=== PATIENT | female | born 1940 | race Caucasian/White ===

== ENCOUNTER 2024-12-17 13:57 | Outpatient (AMB) | payer MEDICARE, SELFPAY ==
--- OUTSIDE RECORDS SUMMARY | 2024-12-17 14:45 | XMS_ITS ---
Author Name [facility] Organization Unknown Care Team Organization Name Specialty Phone Email Start Date End Da te [facility] 03/09/2022 4
--- OUTSIDE RECORDS SUMMARY | 2024-12-17 14:45 | XMS_ITS | Patient Health Record ---
[facility] Address [address] [place] [address] Care Team Providers Care Composition Instructor Name Role Phone Nate Montejo MD Primary Care Provider Marshall Marquez Unavailable [phone] Allergies Allergen (clinical drug ingredient) Drug/Non Drug Allergy documented on EMR Reaction Allergy Type Onset Date Status sulfa rash Drug Allergy Active Reason For Referral No Information Medications Medication SIG (Take, Route, Fr equency, Duration) Notes Start Date End Date Status Naproxen DR 500 MG 1 tablet Orally Twice a day Active Gabapentin 100 MG Orally Ac tive Losartan Potassium-HCTZ Active Social History Tobacco use other than smoking: Question Answer Notes Are you an other tobacco user? No Problems No Known Problems Plan Of Treatment Pending Test Test Name Order Date 18482- Debride <25 sq cm 12/30/2014 Insurance Providers Payer Name Payer Address Payer Phone Subscriber Number Group Number Insured Name Patient Relationship to Insured Coverage Start Date Coverage End Date [employer] Preferred [address] [place] [address] [phone] [id number] Jennifer Handley Self - patient is the insured Medical (General) History Medical History History ICD Code Arthritis Broken bones Cataracts Headaches Migraines Hypertension Neuropathy chronic sinusitis Measles Mumps Chicken pox Surgical History Surgery Date(Month/Year) hysterectomy hand/wrist foot surgery
--- OUTSIDE RECORDS SUMMARY | 2024-12-17 14:45 | XMS_ITS | Clinical Summary ---
Author Organization [facility] Address [address] [place] [address] Care Team Providers Care Manager Code Name Role Phone Niraj Arambula Primary Care Provider Cleo vailable Allergies Active Allergy Reactions Criticality Noted Date Comments Nitrofurantoin 09/07/2018 rash Sulfa Antibiotics 09/07/2018 rash Medications Medication Sig Dispensed Refills Start Date End Date Status alendronate (FOSAMAX) 35 MG tablet Take 35 mg by mouth. 0 Active amLODIPine (NORVASC) tablet 5 mg TAKE ONE TABLET BY MOUTH EVERY DAY 2 09/07/2018 Active gabapentin (NEURONTIN) 600 MG tablet Take 600 mg by mouth every 8 (eight) hours. 3 09/30/2018 Active lisinopril (PRINIVIL,ZESTRIL) tablet 5 mg TAKE ONE TABLET BY MOUTH EVERY DAY 1 09/22/2018 Active metoprolol succinate (TOPROL-XL) 24 hr tablet 25 mg Take 25 mg by mouth. 0 09/22/2018 Active Active Problems Problem Noted Date Diagnosed Date Adhesive capsulitis of left shoulder 10/10/2018 Internal impingement of left shoulder 10/10/2018 Family History Medical History Relation Name Comments Cancer Brother Cancer Father Heart disease Mother Relation Name Status Comments Brother Father Mother Social History Tobacco Use Types Packs/Day Years Used Date Smoking Tobacco: Never Assessed Sex and Gender Information Value Date Recorded Sex Assigned at Not on file Gender Identity Not on file Sexual Orientation Not on file Last Filed Vital Signs Vital Sign Reading Time Taken Comments Blood Pressure - - Pulse - - Temperature - - Respiratory Rate - - Oxygen Saturation - - Inhaled Oxygen Concentration - - Weight 76.2 kg (168 lb) 10/10/2018 2:03 PM EDT Height 160 cm (5' 3 ) 10/10/2018 2:03 PM EDT Body Mass Index 29.76 10/10/2018 2:03 PM EDT Plan of Treatment Health Maintenance Due Date Last Done Comments COVID-19 Vaccine (#1) 1941 Depression Screening 1953 Preventative Health Evaluation 1959 DTap / Tdap / Td (1 - Tdap) 02/12/1960 Shingrix-Zoster Vaccine (1 of 2) 1991 Fall Risk Assessment 2006 Osteoporosis Screening (DEXA Scan) 2006 Pneumococcal Vaccine (2 of 2 - PCV) 07/11/2015 07/10/2014 RSV Adult > 60+ Yrs or Pregn ant (1 - 1-dose 75+ series) 02/12/2016 Influenza Vaccine (#1) 2024 Hepatitis B Vaccines Aged Out No long er eligible based on patient's age to complete this topic RSV Ped < 20 months Aged Out No longe r eligible based on patient's age to complete this topic Care Teams Manager Code Relationship Specialty Start Date End Date Niraj Arambula PCP - General Internal Medicine 09/13/18
--- OUTSIDE RECORDS SUMMARY | 2024-12-17 14:45 | XMS_ITS | Clinical Summary ---
Author Organization Patient Business [facility] Address [address] [place] [address] Care Team Providers Care Bilingual Research Interviewer Name Role Phone Sandy Dale MD Primary Care Provider [phone] Allergies Active Allergy Reactions Criticality Noted Date Comments Nitrofurantoin 09/07/2018 Rash - Macrobid Nitrofurantoin Monohyd/M-Cryst 09/07 rash Pollen Extracts 09/07/2018 SEASONAL ALLERGIES Sulfa (Sulfonamide Antibiotics) 12/2018 rash rash rash Medications apixaban (Eliquis) 5 mg tablet Take 1 tablet (5 mg total) by mouth 2 (two) times a day. 180 tablet 1 08/21/2024 Active sertraline (ZOLOFT) 25 mg tablet Take 1 tablet (25 mg total) by mouth at bedtime. 90 tablet 10/03/2024 Active gabapentin (NEURONTIN) 600 mg tablet Take 1 tablet (600 mg total) by mouth 2 (two) times a day. 180 tablet 10/16/2024 Active losartan (COZAAR) 25 mg tablet Take 1 tablet (25 mg total) by mouth at bedtime. 90 tablet 11/12/2024 Active metoprolol succinate (TOPROL-XL) 25 mg 24 hr tablet Take 1 tablet (25 mg total) by mouth at bedtime. 90 tablet 11/12/2024 Active pravastatin (PRAVACHOL) 10 mg tablet Take 1 tablet (10 mg total) by mouth at bedtime. 90 tablet 11/12/2024 Active omeprazole (PriLOSEC) [address] capsule Take 1 capsule (20 mg total) by mouth 1 (one) time each day before breakfast. 90 capsule 11/12/2024 Active Active Problems Problem Noted Date Diagnosed Date Mitral and aortic valve regurgitation 11/23/2024 New onset atrial fibrillation (CMS/HCC V24, CMS/ HCC V28) 08/26/2024 Hyperlipidemia 08/27/2020 Lumbar spinal stenosis 10/19/2019 Overview (02/17/2024): S/p lumbar laminectomy-Dr Lux Lyme disease 04/19/2019 Overview (02/17/2024): Completed Doxyxycline- 12/18- seen by ID Adhesive capsulitis of left shoulder 10/10/2018 Internal impingement of left shoulder 10/10/2018 Migraines 09/13/2018 Deafness in left ear 09/07/2018 Overview (02/17/2024): Viral cause Essential hypertension 09/07/2018 Neuropathy 09/07/2018 Overview (02/17/2024): In feet and including numbness and pain- dr vásquez Osteopenia 09/07/2018 Vitamin D deficiency 09/07/2018 Encounters Date Type Department Care Team Description 12/03/2024 Telephone Adult Medicine [address] [phone] Martha Tripp MA Referral 11/22/2024 11:00 AM EDT Ancillary Procedure [facility] [address] [place] [address] New onset a-fib (CMS/HCC V24, CMS/HCC V28) 09/18/2024 Telephone Adult Medicine [address] [phone] Sandy aDle MD Referral (Physical Medicine and Rehabilitation) 09/18/2024 Telephone Adult Medicine [address] [place] [address] Sandy Dale MD Referral (Physical Medicine and Rehabilitation) from Last 3 Months Immunizations Name Administration Dates Next Due COVID-19 (Pfizer/Comirnaty) 12yo and older 01/26/2023 Influenza Quadravalent, 0.5m l (Fluad) 65yo and older 03/09/2023,01/14/2020 Influenza trivalent, 0.5mL ( Fluad) 65yo and older 02/16/2024,03/07/2019,03/09/2018,03/10,02/07/2014 Influenza trivalent, 0.5mL ( Fluzone High-dose) 65yo and older 02/08/2022,02/20/2021,03/10/2017 Influenza trivalent, with pr eservative (Fluzone; Afluria) 6mo and older 02/07/2014 Pneumococcal conjugate 13 va lent (Prevnar 13, PCV13) 2mo and older 10/20/2018 Pneumococcal polysaccharide 23 valent (Pneumovax 23) 2yo and older 07/10/2014 Td Tetanus diptheria (Tdvax) 7yo and older 04/23/2020 Surgical History Surgery Date Site/Laterality Comments OTHER SURGICAL HISTORY 11/2016 Right PROCEDURE: [place] OPEN TREATMENT TALUS FRACTURE; COMMENT: internal fixation OTHER SURGICAL HISTORY 1984 PROCEDURE: [place] TOTAL ABDOMINAL HYSTERECT W/WO RMVL TUBE OVARY; COMMENT: endometriosis TONSILLECTOMY PROCEDURE: HISTORICAL TONSILLECTOMY CATARACT EXTRACTION 2012 Bilateral PROCEDURE: HISTORICAL CATARACT REMOVAL FOOT SURGERY 1989 Right PROCEDURE: HISTORICAL FOOT SURGERY; COMMENT: R first toe OTHER SURGICAL HISTORY 03/2021 Bilateral PROCEDURE: MAMMOGRAM, SCREENING, BOTH BREASTS Medical History Medical History Date Comments History of fracture of right ankle DX:History of fracture of right ankle Deafness in left ear 09/07/2018 DX:Deafness in left ear; COMMENT: Viral cause Environmental allergies 09/11/2018 DX:Envir onmental allergies Essential hypertension 09/07/2018 DX:Essent ial hypertension Neuropathy 09/07/2018 DX:Neuropathy; C OMMENT: In feet and including numbness and pain Osteopenia 09/07/2018 DX:Osteopenia Vitamin D deficiency 09/07/2018 DX:Vitamin D deficiency Migraines 09/13/2018 DX:Migraines Family History Medical History Relation Name Comments Lung cancer Brother 1 Brain cancer Brother 2 Other: laryngeal carcinoma Father Coronary artery disease Maternal Grandfather Hypertension Maternal Grandmother Stroke Heart attack Mother CAD, hypertensi on Heart attack Paternal Grandfather Relation Name Status Comments Brother 1 Brother 2 Father Maternal Grandfather Maternal Grandmother Mother Paternal Grandfather Paternal Grandmother Social History Tobacco Use Types Packs/Day Years Used Date Smoking Tobacco: Never Smokeless Tobacco: Never Alcohol Use Standard Drinks/Week Comments Yes 0 (1 standard drink = 0.6 oz pur e alcohol) Comments Unknown Sex and Gender Information Value Date Recorded Sex Assigned at Not on file Legal Sex Female 5:59 AM EST Gender Identity Not on file Sexual Orientation Not on file Obstetrics History Last Filed Vital Signs Vital Sign Reading Time Taken Comments Blood Pressure 135/75 11/22/2024 11:46 AM EDT Pulse 90 08/21/2024 1:56 PM EDT Temperature 35.8 C (96.5 F) 08/21/2024 1:56 PM EDT Respiratory Rate 14 08/21/2024 1:56 PM EDT Oxygen Saturation 96% 08/21/2024 1:56 PM EDT Inhaled Oxygen Concentration - - Weight 76.2 kg (168 lb) 11/22/2024 11:46 AM EDT Height 157.5 cm (5' 2 ) 11/22/2024 11:46 AM EDT Body Mass Index 30.73 11/22/2024 11:46 AM EDT Plan of Treatment Upcoming Encounters Date Type Department Care Team (Late st Contact Info) Description 02/14/2025 1:15 PM EDT Office Visit Adult Medicine [address] [phone] Sandy Dale MD [address] [place] [address] 04/11/2025 10:20 AM EST Office Visit [facility] [address] [facility] [address] [place] [phone] Racquel Sampson MD [address] [facility] [address] [place] [address] Health Maintenance Due Date Last Done Comments Zoster Vaccines (1 of 2) 1991 RSV Immunization Adult Patients (1 - 1-dose 75+ series) 02/12/2016 Social Influencers of Health Screening 04/10/2022 COVID-19 Vaccine ( season) 2024 01/26/2023, 03/16/2021, 07/02/2020, Additional history exists Depression Screening 05/02/2024 Influenza Vaccine (#1) 2024 , 03/09/2023, 02/08/2022, Additional history exists Falls Risk Assessment 02/15/2025 02/16/2024 Medicare Annual Wellness Visit 02/15/2025 02/16/2024 Hypertension/CHF/CAD Annual BMP Blood Test 08/28/2025 08/28/2024, 09/13/2023, 09/13/2023 Cholesterol Screening (Lipid Panel) 08/28/2029 08/28/2024, 09/13/2023, 09/13/2023 DTaP,Tdap,and Td Vaccines (2 - Td or Tdap) 04/23/2030 04/23/2020 Osteoporosis Screening (Bone Density Screening) 06/29/2032 06/29/2022, 05/23/2020, 07/20/2017 Pneumococcal Vaccine: 50+ Years Completed 10/20/2018, 07/10/2014 HIB Vaccines Aged Out No longer eligi ble based on patient's age to complete this topic HPV Vaccines Aged Out No longer eligi ble based on patient's age to complete this topic Hepatitis A Vaccines Aged Out No long er eligible based on patient's age to complete this topic Hepatitis B Vaccines Aged Out No long er eligible based on patient's age to complete this topic IPV Vaccines Aged Out No longer eligi ble based on patient's age to complete this topic MMR Vaccines Aged Out No longer eligi ble based on patient's age to complete this topic Meningococcal ACWY Vaccine Aged Out N o longer eligible based on patient's age to complete this topic Meningococcal B Vaccine Aged Out No l onger eligible based on patient's age to complete this topic RSV Immunization Patients Under 20 months Aged Out No longer eligible based on patient's age to complete this topic Varicella Vaccines Aged Out No longer eligible based on patient's age to complete this topic Procedures Procedure Name Priority Date/Time Associated Diagnosis Comments TRANSTHORACIC ECHOCARDIOGRAM (TTE) COMPLETE Routine 11/22/2024 11:46 AM EDT New onset a-fib (CMS/HCC V24, CMS/HCC V28) COMPREHENSIVE METABOLIC PANEL Routine 08/28/2024 8:43 AM EDT Essential hypertension LIPID PANEL WITH REFLEX TO DIRECT LDL Routine 08/28/2024 8:43 AM EDT Mixed hyperlipidemia DXA BONE DENSITY STUDY 1+ SITS AXIAL SKEL Routine 06/29/2022 1:17 PM EST Other specified disorders of bone density and structure, unspecified site from Last 3 Months or Most Recently Relevant to Health Maintenance Results * (ABNORMAL) TRANSTHORACIC ECHOCARDIOGRAM (TTE) COMPLETE (11/22/2024 11:46 AM EDT) Left Atrium Minor Desoto 6.0 cm CV PACS Left Atrium Major [place]oto 5.2 cm CV PACS LA Area Sys (A2C) 25 cm2 CV PACS LA Area Sys (A4C) 22 cm2 CV PACS LA Volume (BP) 83 mL CV PACS RA Area 16.6 cm2 CV PACS RA 2D Volume 45 mL CV PACS AV Regurgitation PHT 536 ms CV PACS AR Max Velocity 4.1 m/s CV PACS AV Peak Gradient 67 mmHg CV PACS Aortic Sinus Valsalva 3.2 cm CV PACS Ascending Aorta 3.1 cm CV PACS IVC Proximal 1.7 cm CV PACS IVC Proximal 0.7 cm CV PACS IVSD 0.9 0.6 - 0.9 cm CV PACS LVIDD 4.7 3.8 - 5.2 cm CV PACS LVIDS 3.3 2.2 - 3.5 cm CV PACS LVOT Diameter 1.8 cm CV PACS LVOT Mean Farhat 0.5 m/s CV PACS LVOT Mean Grad 1 mmHg CV PACS LVOT Mean Grad 1 mmHg CV PACS LVOT Mean Grad 1 mmHg CV PACS LVOT Mean Grad 1 mmHg CV PACS LVOT Mean Grad 1 mmHg CV PACS LVOT Peak VTI 17.0 cm CV PACS LVOT Peak Farhat 0.8 m/s CV PACS LVOT Peak Gradient 2 mmHg CV PACS LVPWD 1.0(A) 0.6 - 0.9 cm CV PACS LVOT Area 2.5 cm2 CV PACS LVOT Stroke Volume 43 mL CV PACS MR PISA Nyquist Farhat 40 cm/s CV PACS PISA MR Radius 0.40 cm CV PACS MR VTI 180.0 cm CV PACS MR PISA Max Velocity 5.0 m/s CV PACS MR Peak Gradient 98 mmHg CV PACS PISA MR EROA 0.08 cm2 CV PACS PISA Regurgitant Volume 14 mL CV PACS PV Acceleration Time 151 ms CV PACS PV Acceleration Time 148 ms CV PACS PV Acceleration Time 109 ms CV PACS PV Acceleration Time 148 ms CV PACS PV Acceleration Time 139 ms CV PACS RV Diastolic Basal Dimension 3.1 2.5 - 4.1 cm CV PACS RV S' 9 cm/s CV PACS TAPSE 16 mm CV PACS TR Peak Velocity 2.76 m/s CV PACS TR Peak Gradient 30 mmHg CV PACS Relative Wall Thickness ratio 0.43 CV PACS FS 30 % CV PACS LV Mass 2D 153 g CV PACS LVOT flow 127 mL/s CV PACS BSA 1.83 m2 CV PACS LA Volume Index (BP) 47 mL/m2 CV PACS LVIDD Index 2.66 cm/m2 CV PACS LVIDS Index 1.86 cm/m2 CV PACS LV Mass Index 2D 87 44 - 88 g/m2 CV PACS LVOT Stroke Index 24 mL/m2 CV PACS RA 2D Volume Index 25 15 - 27 mL/m2 CV PACS Ascending Aorta Index 1.75 cm/m2 CV PACS Right Ventricular Peak Systolic Pressure 33 mmHg CV PACS Est. RA Pressure 3 mmHg CV PACS Anatomical Region Laterality Modality Ultrasound Narrative 11/23/2024 9:50 AM EDT Adequate apical but very difficult parasternal images. Left ventricle cavity size is normal. There is mild posterior wall hypertrophy. Systolic function is normal with an ejection fraction of 60-65%. There are no regional LV wall motion abnormalities. Unable to assess diastolic function due to atrial flutter. Right ventricle cavity is normal. Right ventricular systolic function is low normal. Mild to moderate atrial dilation. Mild to moderate aortic valve regurgitation. Mild to moderate mitral regurgitation. Tricuspid valve demonstrates mild to moderate regurgitation. The right ventricular systolic pressure is normal and estimated at 33 mmHg. Left Ventricle Left ventricle cavity size is normal. There is mild posterior wall hypertrophy. Systolic function is normal with an ejection fraction of 60-65%. There are no regional LV wall motion abnormalities. Unable to assess diastolic function due to atrial flutter. Right Ventricle Right ventricle cavity appears normal. Systolic function is low normal. Left Atrium Left atrium cavity is moderately dilated. Right Atrium Right atrium cavity is mildly dilated. IVC/SVC Inferior vena cava structure is normal. RA pressures is estimated to be 3 mmHg (IVC diameter <21 mm and decreases >50% during inspiration). Mitral Valve The leaflets are mildly thickened. There is mild posterior annular calcification. There is mild to moderate regurgitation with a centrally directed jet. There is no evidence of mitral valve stenosis. Tricuspid Valve Tricuspid valve structure is normal. There is mild to moderate regurgitation. There is no significant tricuspid valve stenosis. The right ventricular systolic pressure is normal. The RVSP is estimated at 33 mmHg. Aortic Valve Number of aortic valve cusps cannot be determined. The leaflets are not thickened and exhibit normal excursion. There is mild to moderate regurgitation. There is no evidence of aortic valve stenosis. Pulmonic Valve The pulmonic valve was not well visualized. No significant pulmonic valve regurgitation. No significant pulmonary valve stenosis noted. Ascending Aorta The aorta appears normal in size. Pericardium Pericardium appears normal. There is no pericardial effusion. Study Details Overall the study quality was adequate. The underlying ECG rhythm was atrial fibrillation. us Bettina GOEL CV ECHO PROCEDURES Final Resu lt * Lipid panel with reflex to direct LDL (08/28/2024 8:43 AM EDT) Cholesterol 144 0 - 200 mg/dL LAB CHEMISTRY METHOD 08/28/2024 1:44 PM EDT [facility] Triglycerides 121 0 - 150 mg/dL LAB CHEMISTRY METHOD 08/28/2024 1:44 PM EDT [facility] HDL 53 >=40 mg/dL LAB CHEMISTRY METHOD 08/28/2024 1:44 PM EDT [facility] LDL Calculated 67 0 - 100 mg/dL LAB CHEMISTRY METHOD 08/28/2024 1:44 PM EDT [facility] VLDL Cholesterol Carlos 24.2 mg/dL LAB CHEMISTRY METHOD 08/28/2024 1:44 PM T [facility] Non HDL Chol. (LDL+VLDL) 91 <145 mg/dL LAB CHEMISTRY METHOD 08/28/2024 1:44 PM EDT [facility] Chol/HDL Ratio 2.7 0.0 - 4.4 LAB CHEMISTRY METHOD 08/28/2024 1:44 PM T [facility] Blood Venous blood specimen / Unknown Venipuncture / Unknown 08/28/2024 8:43 AM EDT 08/28/2024 8:43 AM EDT us Bettina GOEL LAB BLOOD ORDERABLES Final Re sult [facility] [address] [place] [address], [place] [phone] * Comprehensive metabolic panel (08/28/2024 8:43 AM EDT) Sodium 144 133 - 145 mmol/L LAB CHEMISTRY METHOD 08/28/2024 1:44 PM [facility] Potassium 4.5 3.5 - 5.5 mmol/L LAB CHEMISTRY METHOD 08/28/2024 1:44 PM [facility] Chloride 106 96 - 110 mmol/L LAB CHEMISTRY METHOD 08/28/2024 1:44 PM [facility] CO2 30 21 - 32 mmol/L LAB CHEMISTRY METHOD 08/28/2024 1:44 PM [facility] Anion Gap 8 3 - 11 LAB CHEMISTRY METHOD 08/28/2024 1:44 PM [facility] Glucose 95 70 - 100 mg/dL LAB CHEMISTRY METHOD 08/28/2024 1:44 PM [facility] BUN 15 5 - 25 mg/dL LAB CHEMISTRY METHOD 08/28/2024 1:44 PM [facility] Creatinine 0.79 0.50 - 1.10 mg/dL LAB CHEMISTRY METHOD 08/28/2024 1:44 PM [facility] eGFR 74 >=60 mL/min/1. 73m2 LAB CHEMISTRY METHOD 08/28/2024 1:44 PM [facility] Comment:Calculation based on the Chronic Kidney Disease Epidemiology Collaboration (CKD-EPI) equation refit without adjustment for race. BUN/Creatinine Ratio 19.0 LAB CHEMISTRY METHOD 08/28/2024 1:44 PM [facility] Calcium 9.2 8.5 - 10.5 mg/dL LAB CHEMISTRY METHOD 08/28/2024 1:44 PM [facility] AST (SGOT) 15 10 - 42 unit/L LAB CHEMISTRY METHOD 08/28/2024 1:44 PM [facility] ALT (SGPT) 26 10 - 60 unit/L LAB CHEMISTRY METHOD 08/28/2024 1:44 PM [facility] Alkaline Phosphatase 93 42 - 121 unit/L LAB CHEMISTRY METHOD 08/28/2024 1:44 PM [facility] Total Protein 6.6 6.0 - 8.0 g/dL LAB CHEMISTRY METHOD 08/28/2024 1:44 PM [facility] Albumin 3.7 3.2 - 5.0 g/dL LAB CHEMISTRY METHOD 08/28/2024 1:44 PM [facility] Total Bilirubin 0.5 0.0 - 1.4 mg/dL LAB CHEMISTRY METHOD 08/28/2024 1:44 PM [facility] Blood Venous blood specimen / Unknown Venipuncture / Unknown 08/28/2024 8:43 AM EDT 08/28/2024 8:43 AM EDT us Bettina GOEL LAB BLOOD ORDERABLES Final Re sult [facility] [address] [place] [address], [place] [phone] * DXA BONE DENSITY STUDY 1+ SITS AXIAL SKEL (06/29/2022 1:17 PM EST) Anatomical Region Laterality Modality Bone Densitometr y 06/16/2022 3:02 PM EST Narrative 06/29/2022 7:57 PM EST BONE DENSITY SCAN (DEXA) FINDINGS: Lumbar Spine T-score is -0.2. (SD relative to 20-29 y/o adult) Z-score is 2.5. (SD relative to age matched peers) This is considered normal by WHO criteria. Left Hip T-score is -0.8. Z-score is 1.5. This is considered normal by WHO criteria. Comparison: 05/23/2020. No statistically significant change in bone mineral density. IMPRESSION: IMPRESSION: Normal bone mineral density by WHO criteria. The [facility] Department of Internal Medicine recommends using National Osteoporosis Foundation (NOF) guidelines in treatment decisions related to osteoporosis. NOF guidelines suggest considering treatment for postmenopausal women and men aged 50 or older presenting with the following: History of hip or vertebral fracture. T-score = -2.5 (DXA) at the femoral neck, total hip, or spine, after appropriate evaluation to exclude secondary causes. Low bone mass (T-score between -1.0 and -2.5 at the femoral neck or spine) AND a 10-year probability of a hip fracture = 3% OR a 10-year probability of a major osteoporosis-related fracture = 20% based on the [place]-adapted WHO algorithm Please note that all treatment decisions require clinical judgment and consideration of individual patient factors, including patient preferences, co-morbidities, previous drug use, risk factors not captured in the FRAX model (e.g., frailty, falls, vitamin D deficiency, increased bone turnover, interval significant decline in bone density) and possible under- or over-estimation of fracture risk by FRAX. Optional alternative screening schedule based on matilde Sinclair., [facility]JM May 20, 2011 for patients with osteopenia (based on hip BMD T-score) is as follows: * advanced osteopenia (T scores -2.00 to -2.49), BMD testing every year * moderate osteopenia (T scores -1.50 to -1.99), BMD testing every 5 years mild osteopenia or normal BMD (T scores -1.50 and higher), BMD testing every 15 years Procedure Note Jemima Ortiz MD - 06/07/2023 BONE DENSITY SCAN (DEXA) FINDINGS: Lumbar Spine T-score is -0.2. (SD relative to 20-29 y/o adult) Z-score is 2.5. (SD relative to age matched peers) This is considered normal by WHO criteria. Left Hip T-score is -0.8. Z-score is 1.5. This is considered normal by WHO criteria. Comparison: 05/23/2020. No statistically significant change in bonemineral density. IMPRESSION: IMPRESSION: Normal bone mineral density by WHO criteria. The [facility] Department of Internal Medicine recommendsusing National Osteoporosis Foundation (NOF) guidelines in treatment decisions related toosteoporosis. NOF guidelines suggest considering treatment for postmenopausal women and menaged 50 or older presenting with the following: History of hip or vertebral fracture. T-score = -2.5 (DXA) at the femoral neck, total hip, or spine, afterappropriate evaluation to exclude secondary causes. Low bone mass (T-score between -1.0 and -2.5 at the femoral neck or spine)AND a 10-year probability of a hip fracture = 3% OR a 10-year probability of a majorosteoporosis-related fracture = 20% based on the [place]-adapted WHO algorithm Please note that all treatment decisions require clinical judgment andconsideration of individual patient factors, including patient preferences, co- morbidities,previous drug use, risk factors not captured in the FRAX model (e.g., frailty, falls, vitaminD deficiency, increased bone turnover, interval significant decline in bone density) andpossible under- or over-estimation of fracture risk by FRAX. Optional alternative screening schedule based on evelia Sinclair, [facility]2011 for patients with osteopenia (based on hip BMD T-score) is as follows: * advanced osteopenia (T scores -2.00 to -2.49), BMD testing every year * moderate osteopenia (T scores -1.50 to -1.99), BMD testing every 5years mild osteopenia or normal BMD (T scores -1.50 and higher), BMD testingevery 15 years Sandy Dale MD IMG DXA PROCEDURES Final Result from Last 3 Months or Most Recently Relevant to Health Maintenance Insurance [employer] Care Teams Bilingual Research Interviewer Relationship Specialty Start Date End Date Sandy Dale MD [address] [place] [address] PCP - General Internal Medicine 03/03/21
== END 2024-12-17 14:11 | disposition home or self-care (01) ==
LOC: HO.HMGAL 13:57
PROVIDERS: PCP Internal Medicine; Visit Provider Registered Nurse Emergency
DX: J30.89 Other allergic rhinitis (principal)
CPT/HCPCS: 95117; 95165

== ENCOUNTER 2025-01-09 13:51 | Outpatient (AMB) | payer MEDICARE, SELFPAY ==
--- OUTSIDE RECORDS SUMMARY | 2025-01-09 16:55 | XMS_ITS | Clinical Summary ---
Author Organization [facility] Address [address] [place] [address] Care Team Providers Care Events Assistant Name Role Phone Niraj Arambula Primary Care [...] age to complete this topic Care Teams Events Assistant Relationship Specialty Start Date End Date Niraj Arambula PCP - General Internal Medicine 09/13/18
--- OUTSIDE RECORDS SUMMARY | 2025-01-09 16:55 | XMS_ITS | Patient Health Record ---
Author [facility] Address [address] [place] [address] Care Team Providers Care Senior Net Programmer Name Role Phone Nate Montejo MD Primary Care Provider Marshall Marquez Unavailable [phone] Allergies Allergen (clinical drug ingredient) Drug/Non Drug [...] Treatment Pending Test Test Name Order Date [id number] Debride <25 sq cm 12/30/2014 Insurance Providers Payer Name Payer Address Payer Phone Subscriber Number Group Number Insured Name Patient Relationship to Insured Coverage Start Date Coverage End Date [employer] Preferred [address] [place] [address] [id number] Jennifer Handley Self - patient is the insured Medical (General) History Medical History History ICD Code Arthritis Broken bones Cataracts Headaches Migraines Hypertension Neuropathy chronic sinusitis Measles Mumps Chicken pox Surgical History Surgery Date(Month/Year) hysterectomy hand/wrist foot surgery
--- OUTSIDE RECORDS SUMMARY | 2025-01-09 16:55 | XMS_ITS | Clinical Summary ---
Author Organization [facility] Address [address] [place] [address] Care Team Providers Care Industrial Sales Representative Name Role Phone Sandy Dale MD Primary Care Provider [phone] Allergies Active Allergy Reactions Criticality Noted Date Comments Nitrofurantoin 09/07/2018 Rash - Macrobid Nitrofurantoin Monohyd/M-Cryst 09/07 rash Pollen Extracts 09/07/2018 SEASONAL ALLERGIES Sulfa (Sulfonamide Antibiotics) 12/2018 rash rash rash Medications apixaban (Eliquis) 5 mg tablet Take 1 tablet (5 mg total) by mouth 2 (two) times a day. 180 tablet 1 5 Active losartan (COZAAR) 25 mg tablet Take 1 tablet (25 mg total) by mouth at bedtime. 90 tablet 5 Active metoprolol succinate (TOPROL-XL) 25 mg 24 hr tablet Take 1 tablet (25 mg total) by mouth at bedtime. 90 tablet 5 Active pravastatin (PRAVACHOL) 10 mg tablet Take 1 tablet (10 mg total) by mouth at bedtime. 90 tablet 5 Active omeprazole (PriLOSEC) [address] capsule Take 1 capsule (20 mg total) by mouth 1 (one) time each day before breakfast. 90 capsule 5 Active sertraline (ZOLOFT) 25 mg tablet Take 1 tablet (25 mg total) by mouth at bedtime. 90 tablet 1 5 Active gabapentin (NEURONTIN) 600 mg tablet Take 1 tablet (600 mg total) by mouth 2 (two) times a day. 180 tablet 1 5 Active sertraline (ZOLOFT) 25 mg tablet Take 1 tablet (25 mg total) by mouth at bedtime. 90 tablet 5 12/20/19 25 Discontinu ed(Reorder ) gabapentin (NEURONTIN) 600 mg tablet Take 1 tablet (600 mg total) by mouth 2 (two) times a day. 180 tablet 5 12/20/19 25 Discontinu ed(Reorder ) Active Problems Problem Noted Date Diagnosed Date Mitral and aortic valve regurgitation 11/23/2024 New onset atrial fibrillation (CMS/[facility] V24, CMS/ [facility] V28) 08/26/2024 Hyperlipidemia 08/27/2020 Lumbar spinal stenosis [...] Encounters Date Type Department Care Team Description 12/19/2024 9:20 AM EDT - 12/19/2024 11:59 PM EDT Hospital Encounter [facility] [address] [place] [address] Acute right ankle pain Discharge Disposition: Home or Self Care 12/19/2024 9:00 AM EDT Office Visit Adult Medicine [address] [phone] Sandy Dale MD Acute right ankle pain (Primary Dx); Essential hypertension; New onset atrial fibrillation ([facility]/HCC V24, CMS/HCC V28); Neuropathy 12/17/2024 Telephone Adult Medicine [address] [phone] Sandy Dale MD 12/03/2024 Telephone Adult Medicine [address] [phone] Martha Tripp [place] 11/22/2024 11:00 AM EDT Ancillary Procedure [facility] - [facility] [address] [facility] [address] [place] [address] New onset a-fib (CMS/HCC V24, CMS/HCC V28) from Last 3 Months Immunizations Name Administration [...] Site/Laterality Comments OTHER SURGICAL HISTORY 11/2016 Right talus fracture, internal fixation TONSILLECTOMY CATARACT EXTRACTION 2012 Bilateral FOOT SURGERY 1989 Right : R first toe HYSTERECTOMY Medical History Medical History Date Comments History of fracture of right ankle Deafness in left ear 09/07/2018 Viral cause Environmental allergies 09/11/2018 Essential hypertension 09/07/2018 Neuropathy 09/07/2018 In feet and incl uding numbness and pain Osteopenia 09/07/2018 Vitamin D deficiency 09/07/2018 Migraines 09/13/2018 Lumbar spinal stenosis 10/19/2019 S/p lumba r laminectomy-Dr Lux Mitral and aortic valve regurgitation 11/23/2024 New onset atrial fibrillatio n ([facility] V24, [facility] V28) 08/26/2024 Family History Medical History Relation Name Comments [...] Date Smoking Tobacco: Never Smokeless Tobacco: Never Tobacco Cessation:Counseling Given: Not Answered Alcohol Use Standard Drinks/Week Comments Yes 0 (1 standard drink = 0.6 oz pur e alcohol) Comments Unknown Sex and Gender Information Value Date Recorded Sex Assigned at Not on file Legal Sex Female 5:59 AM EST Gender Identity Not on file Sexual Orientation Not on file Obstetrics History Last Filed Vital Signs Vital Sign Reading Time Taken Comments Blood Pressure 138/82 12/19/2024 9:08 AM EDT Pulse 99 12/19/2024 8:51 AM EDT Temperature 36.6 C (97.9 F) 12/19/2024 8:51 AM EDT Respiratory Rate 16 12/19/2024 8:51 AM EDT Oxygen Saturation 97% 12/19/2024 8:51 AM EDT Inhaled Oxygen Concentration - - Weight 77.3 kg (170 lb 8 oz) 12/19/2024 8:51 AM EDT Height 157.5 cm (5' 2 ) 12/19/2024 8:51 AM EDT Body Mass Index 31.18 12/19/2024 8:51 AM EDT Plan of Treatment Upcoming Encounters Date Type Department Care Team (Late st Contact Info) Description 02/14/2025 1:15 PM EDT Office Visit Adult Medicine [facility] [address], [place] [phone] Sandy Dale MD [address] [place], [place] 04/11/2025 10:20 AM EST Office Visit [facility] - [facility] [address] [facility] [address] [place] [address] Racquel Sampson MD [address] [place] [address] [place] [address] Health Maintenance Due Date Last Done Comments Zoster Vaccines (1 of 2) 1991 RSV Immunization Adult Patients (1 - 1-dose 75+ series) 02/12/2016 Social Influencers of Health Screening 04/10/2022 Depression Screening 05/02/2024 COVID-19 Vaccine ( season) 2024 01/26/2023, 03/16/2021, 07/02/2020, Additional history exists Influenza Vaccine (#1) 2024 , 03/09/2023, 02/08/2022, [...] Procedure Name Priority Date/Time Associated Diagnosis Comments XR ANKLE 3+ VIEWS RIGHT Routine 12/19/2024 9:29 AM EDT Acute right ankle pain TRANSTHORACIC ECHOCARDIOGRAM (TTE) COMPLETE Routine 11/22/2024 11:46 [...] Recently Relevant to Health Maintenance Results * XR Ankle 3+ Views Right (12/19/2024 9:29 AM EDT) Anatomical Region Laterality Modality Lower Extremities, Ankle Right Radiogr aphic Imaging 12/19/2024 11:1 4 AM EDT Narrative 12/19/2024 11:15 AM EDT Right ankle, 3 views. History pain after the fall. No prior studies are available for comparison. There are post operative changes in the right ankle with surgical plate and multiple screws in the distal fibula and 2 pins in the medial malleolus. No acute displaced fractures or dislocations. CONCLUSIONS: Post operative changes in the right ankle as detailed. No acute fractures or dislocations. -------- FINAL REPORT -------- Dictated By: Allyson Pierre Dictated Date: 12/19/2024 11:14 ET Assigned Physician: Allyson Pierre Reviewed and Electronically Signed By: Allyson Pierre Signed Date: 12/19/2024 11:15 ET Workstation ID: [id number] Transcribed By: Self Edit Transcribed Date: 12/19/2024 11:14 ET Procedure Note Allyson Pierre MD - 12/19/2024 Right ankle, 3 views. History pain after the fall. No prior studies are available for comparison. There are post operative changes in the right ankle with surgical plateand multiple screws in the distal fibula and 2 pins in the medialmalleolus. No acute displaced fractures or dislocations. CONCLUSIONS: Post operative changes in the right ankle as detailed. Noacute fractures or dislocations. -------- FINAL REPORT -------- Dictated By: Allyson Pierre Dictated Date: 12/19/2024 11:14 ET Assigned Physician: Allyson Pierre Reviewed and Electronically Signed By: Allyson Pierre Signed Date: 12/19/2024 11:15 ET Workstation ID: [id number] Transcribed By: Self Edit Transcribed Date: 12/19/2024 11:14 ET Sandy Dale MD IMG XR PROCEDURES Final Result * (ABNORMAL) TRANSTHORACIC ECHOCARDIOGRAM (TTE) COMPLETE (11/22/2024 11:46 AM EDT) Left Atrium Minor [place] 6.0 cm CV PACS Left Atrium Major [place] 5.2 cm CV PACS LA Area Sys [...] LAB CHEMISTRY METHOD 08/28/2024 1:44 PM EDT [facility] Triglycerides 121 0 - 150 mg/dL LAB CHEMISTRY METHOD 08/28/2024 1:44 PM EDT [facility] HDL 53 >=40 mg/dL LAB CHEMISTRY METHOD 08/28/2024 1:44 PM EDT [facility] LDL Calculated 67 0 - 100 mg/dL LAB CHEMISTRY METHOD 08/28/2024 1:44 PM EDT [facility] VLDL Cholesterol Carlos 24.2 mg/dL LAB CHEMISTRY METHOD 08/28/2024 1:44 PM EDT [facility] Non HDL Chol. (LDL+VLDL) 91 <145 mg/dL LAB CHEMISTRY METHOD 08/28/2024 1:44 PM EDT [facility] Chol/HDL Ratio 2.7 0.0 - 4.4 LAB CHEMISTRY METHOD 08/28/2024 1:44 PM EDT [facility] Blood Venous blood specimen / Unknown Venipuncture / Unknown 08/28/2024 8:43 AM EDT 08/28/2024 8:43 AM EDT us Bettina GOEL LAB BLOOD ORDERABLES Final Re sult [facility] [address] [place] [address], * Comprehensive metabolic panel (08/28/2024 8:43 AM EDT) Sodium 144 133 - 145 mmol/L LAB CHEMISTRY METHOD 08/28/2024 1:44 PM EDT [facility] Potassium 4.5 3.5 - 5.5 mmol/L LAB CHEMISTRY METHOD 08/28/2024 1:44 PM [facility] Chloride 106 96 - 110 mmol/L LAB CHEMISTRY METHOD 08/28/2024 1:44 PM [facility] CO2 30 21 - 32 mmol/L LAB CHEMISTRY METHOD 08/28/2024 1:44 PM [facility] Anion Gap 8 3 - 11 LAB CHEMISTRY METHOD 08/28/2024 1:44 PM [facility] Glucose 95 70 - 100 mg/dL LAB CHEMISTRY METHOD 08/28/2024 1:44 PM [facility] BUN 15 5 - 25 mg/dL LAB CHEMISTRY METHOD 08/28/2024 1:44 PM [facility] Creatinine 0.79 0.50 - 1.10 mg/dL LAB CHEMISTRY METHOD 08/28/2024 1:44 PM [facility] eGFR 74 >=60 mL/min/1. 73m2 LAB CHEMISTRY METHOD 08/28/2024 1:44 PM [facility] Comment:Calculation based on the Chronic Kidney Disease Epidemiology Collaboration (CKD-EPI) equation refit without adjustment for race. BUN/Creatinine Ratio 19.0 LAB CHEMISTRY METHOD 08/28/2024 1:44 PM [facility] Calcium 9.2 8.5 - 10.5 mg/dL LAB CHEMISTRY METHOD 08/28/2024 1:44 PM [facility] AST (SGOT) 15 10 - 42 unit/L LAB CHEMISTRY METHOD 08/28/2024 1:44 PM [facility] ALT (SGPT) 26 10 - 60 unit/L LAB CHEMISTRY METHOD 08/28/2024 1:44 PM [facility] Alkaline Phosphatase 93 42 - 121 unit/L LAB CHEMISTRY METHOD 08/28/2024 1:44 PM [facility] Total Protein 6.6 6.0 - 8.0 g/dL LAB CHEMISTRY METHOD 08/28/2024 1:44 PM EDT [facility] Albumin 3.7 3.2 - 5.0 g/dL LAB CHEMISTRY METHOD 08/28/2024 1:44 PM EDT [facility] Total Bilirubin 0.5 0.0 - 1.4 mg/dL LAB CHEMISTRY METHOD 08/28/2024 1:44 PM EDT [facility] Blood Venous blood specimen / Unknown Venipuncture / Unknown 08/28/2024 8:43 AM EDT 08/28/2024 8:43 AM EDT us Bettina GOEL LAB BLOOD ORDERABLES Final Re sult [facility] [address] [place] [address], * DXA BONE DENSITY STUDY 1+ SITS [...] bone mineral density by WHO criteria. The [facility] Department of Internal Medicine recommends using [...] alternative screening schedule based on matilde Sinclair., [facility] May 20, 2011 for patients with osteopenia [...] bone mineral density by WHO criteria. The [facility] Department of Internal Medicine recommendsusing National [...] alternative screening schedule based on matilde Sinclair., NEJMJanuary 2011 for patients with osteopenia (based on [...] Maintenance Insurance [employer] Care Teams Industrial Sales Representative Relationship Specialty Start Date End Date Sandy Dale MD [address] [place] [address] PCP - General Internal Medicine 03/03/21
== END 2025-01-09 13:55 | disposition home or self-care (01) ==
LOC: HO.HMGAL 13:51
PROVIDERS: PCP Internal Medicine; Visit Provider Registered Nurse Emergency
DX: J30.89 Other allergic rhinitis (principal)
CPT/HCPCS: 95117; 95165

== ENCOUNTER 2025-02-04 14:06 | Outpatient (AMB) | payer MEDICARE, SELFPAY ==
--- OUTSIDE RECORDS SUMMARY | 2025-02-04 16:40 | XMS_ITS | Clinical Summary ---
Author Organization [facility] Address [address] [place] [address] Care Team Providers Care Wrapper Off Name Role Phone Sandy Dale MD Primary Care Provider [phone] Allergies Active Allergy Reactions Criticality Noted Date Comments Nitrofurantoin 09/07/2018 Rash - Macrobid Nitrofurantoin Monohyd/M-Cryst 09/07 rash Pollen Extracts 09/07/2018 SEASONAL ALLERGIES Sulfa (Sulfonamide Antibiotics) 12/2018 rash rash rash Medications apixaban (Eliquis) 5 mg tablet Take 1 tablet (5 mg total) by mouth 2 (two) times a day. 180 tablet 1 08/21/2024 Active losartan (COZAAR) 25 mg tablet Take [...] day before breakfast. 90 capsule 11/12/2024 Active sertraline (ZOLOFT) 25 mg tablet Take 1 tablet (25 mg total) by mouth at bedtime. 90 tablet 1 12/19/2024 Active gabapentin (NEURONTIN) 600 mg tablet Take 1 tablet (600 mg total) by mouth 2 (two) times a day. 180 tablet 1 12/19/2024 Active Active Problems Problem Noted Date Diagnosed [...] - 12/19/2024 11:59 PM EDT Hospital Encounter XRAY - [address] [phone] Acute right ankle pain Discharge Disposition: Home or Self Care 12/19/2024 9:00 AM EDT Office Visit Adult Medicine [address] [phone] Sandy Dale MD Acute right ankle pain (Primary Dx); Essential hypertension; New onset atrial fibrillation (CMS/HCC V24, CMS/HCC V28); Neuropathy 12/17/2024 Telephone Adult Medicine [address] [phone] Sandy Dale MD 12/03/[address] [facility] [address] [place] [address] Qasim MarthaJUAN M osullivan 11/22/2024 11:00 AM EDT Ancillary Procedure [facility] - [address] [place] [address] New onset a-fib (CMS/HCC V24, CMS/HCC V28) from Last 3 Months Immunizations Immunization Administration Dates Next Due COVID-19 (Pfizer/Comirnaty) 13yo [...] regurgitation 11/23/2024 New onset atrial fibrillatio n ([facility] V24, [facility] V28) 08/26/2024 Family History Medical History Relation [...] 1:15 PM EDT Office Visit Adult Medicine [address] [phone] Sandy Dale MD [address] [place], [place] 04/11/2025 10:20 AM EST Office Visit [facility] - [facility] [address] [facility] [address] [place] [id number] Racquel Sampson MD [address] [facility] [address] [place] [address] Health Maintenance Due Date Last Done Comments [...] Signed Date: 12/19/2024 11:15 ET Workstation ID: [id number] Transcribed By: Self Edit Transcribed Date: 12/19/2024 [...] Signed Date: 12/19/2024 11:15 ET Workstation ID: [id number] Transcribed By: Self Edit Transcribed Date: 12/19/2024 11:14 ET Sandy Dale MD IMG XR PROCEDURES Final Result * (ABNORMAL) TRANSTHORACIC ECHOCARDIOGRAM (TTE) COMPLETE (11/22/2024 11:46 AM EDT) Left Atrium Minor [place] 6.0 cm CV PACS Left Atrium Major [place] 5.2 cm CV PACS LA Area Sys [...] to direct LDL (08/28/2024 8:43 AM EDT) [facility] Signature Cholesterol 144 0 - 200 mg/dL LAB [...] 1:44 PM EDT [facility] Non HDL Chol. (LDL+VLDL) 91 <145 mg/dL LAB CHEMISTRY METHOD 08/28/2024 1:44 PM EDT [facility] Chol/HDL Ratio 2.7 0.0 - 4.4 LAB CHEMISTRY METHOD 08/28/2024 1:44 PM EDT [facility] Blood Venous blood specimen / Unknown Venipuncture / Unknown 08/28/2024 8:43 AM EDT 08/28/2024 8:43 AM EDT us Bettina GOEL LAB BLOOD ORDERABLES Final Re sult [facility] [address] [place] [address], * Comprehensive metabolic panel (08/28/2024 8:43 AM EDT) Sodium 144 133 - 145 mmol/L LAB CHEMISTRY METHOD 08/28/2024 1:44 PM EDT [facility] Potassium 4.5 3.5 - 5.5 mmol/L LAB CHEMISTRY METHOD [facility]/28[facility]24 [facility] Chloride 106 96 - 110 mmol/L LAB CHEMISTRY METHOD 08/28/2024 1:44 PM EDT [facility] CO2 30 21 - 32 mmol/L LAB CHEMISTRY METHOD 08/28/2024 1:44 PM [facility] Anion Gap 8 3 - 11 LAB CHEMISTRY METHOD 08/28/2024 1:44 PM [facility] Glucose 95 70 - 100 mg/dL LAB CHEMISTRY METHOD 08/28/2024 1:44 PM [facility] BUN 15 5 - 25 mg/dL LAB CHEMISTRY METHOD 08/28/2024 1:44 PM [facility] Creatinine 0.79 0.50 - 1.10 mg/dL LAB CHEMISTRY METHOD 08/28/2024 1:44 PM [facility] eGFR 74 >=60 mL/min/1. 73m2 LAB CHEMISTRY METHOD 08/28/2024 1:44 PM [facility] Comment:Calculation based on the Chronic Kidney Disease Epidemiology Collaboration (CKD-EPI) equation refit without adjustment for race. BUN/Creatinine Ratio 19.0 LAB CHEMISTRY METHOD 08/28/2024 1:44 PM [facility] Calcium 9.2 8.5 - 10.5 mg/dL LAB CHEMISTRY METHOD 08/28/2024 1:44 PM [facility] AST (SGOT) 15 10 - 42 unit/L LAB CHEMISTRY METHOD 08/28/2024 1:44 PM [facility] ALT (SGPT) 26 10 - 60 unit/L LAB CHEMISTRY METHOD 08/28/2024 1:44 PM [facility] Alkaline Phosphatase 93 42 - 121 unit/L LAB CHEMISTRY METHOD 08/28/2024 1:44 PM [facility] Total Protein 6.6 6.0 - 8.0 g/dL LAB CHEMISTRY METHOD 08/28/2024 1:44 PM [facility] Albumin 3.7 3.2 - 5.0 g/dL LAB CHEMISTRY METHOD 08/28/2024 1:44 PM [facility] Total Bilirubin 0.5 0.0 - 1.4 mg/dL LAB CHEMISTRY METHOD 08/28/2024 1:44 PM EDT [facility] Blood Venous blood specimen / Unknown Venipuncture / Unknown 08/28/2024 8:43 AM EDT 08/28/2024 8:43 AM EDT us Bettina GOEL LAB BLOOD ORDERABLES Final Re sult [facility]) [facility] [address] [place] [address], * DXA BONE DENSITY STUDY 1+ SITS [...] bone mineral density by WHO criteria. The [facility] Department of Internal Medicine recommends using National [...] alternative screening schedule based on matilde Sinclair., [facility] May 20, 2011 for patients with osteopenia [...] bone mineral density by WHO criteria. The [facility] Department of Internal Medicine recommendsusing National Osteoporosis [...] FRAX. Optional alternative screening schedule based on abhinav Sinclair al., NEJMJanuary 2011 for patients with osteopenia (based [...] Maintenance Insurance [employer] Care Teams Wrapper Off Relationship Specialty Start Date End Date Sandy Dale MD [address] [place] [address] PCP - General Internal Medicine 03/03/21
--- OUTSIDE RECORDS SUMMARY | 2025-02-04 16:40 | XMS_ITS | Clinical Summary ---
Author Organization [facility] Address [address] [place] [address] Care Team Providers Care Hand Marker Name Role Phone Niraj Arambula Primary Care [...] age to complete this topic Care Teams Hand Marker Relationship Specialty Start Date End Date Niraj Arambula PCP - General Internal Medicine 09/13/18
--- OUTSIDE RECORDS SUMMARY | 2025-02-04 16:40 | XMS_ITS | Patient Health Record ---
Author Organization [facility] Address [address] [place] [address] Care Team Providers Care Portrait Painter Name Role Phone Nate Montejo MD Primary Care Provider Marshall Marquez Unavailable [phone] Allergies Allergen (clinical drug ingredient) Drug/Non Drug [...] Treatment Pending Test Test Name Order Date [id number]- Debride <25 sq cm 12/30/2014 Insurance Providers Payer Name Payer Address Payer Phone Subscriber Number Group Number Insured Name Patient Relationship to Insured Coverage Start Date Coverage End Date [employer] Preferred [address] [place] [address] [phone] [id number] Jennifer Handley Self - patient is the insured Medical (General) History Medical History History ICD Code Arthritis Broken bones Cataracts Headaches Migraines Hypertension Neuropathy chronic sinusitis Measles Mumps Chicken pox Surgical History Surgery Date(Month/Year) hysterectomy hand/wrist foot surgery
== END 2025-02-04 14:08 | disposition home or self-care (01) ==
LOC: HO.HMGAL 14:06
PROVIDERS: PCP Internal Medicine; Visit Provider Registered Nurse Emergency
DX: J30.89 Other allergic rhinitis (principal)
CPT/HCPCS: 95117; 95165

== ENCOUNTER 2025-03-06 13:57 | Outpatient (AMB) | payer MEDICARE, SELFPAY ==
--- OUTSIDE RECORDS SUMMARY | 2025-03-06 17:08 | XMS_ITS | Encounter Summary ---
Author Organization [facility] Address [address] [place] [address] Care Team Providers Care Numerical Control Machine Machinist Name Role Phone Sandy Dale MD Primary Care Provider [phone] Reason for Referral * Consultation (Routine) - Closed Specialty Diagnoses / Procedures Referred By Brianna dumas Referred To Contact Allergy and Immunology Diagnoses Allergy, initial encounter Sandy Dale MD [address] [place] [address] Phone: tel: fax: Tanya Crowe, [address] [address] Phone: tel: Referral ID Status Reason Start Date Expiration Date V isits Requested Visits Authorized [id number] Closed Specialty Services Required 12/17/2024 12/17/2025 99 99 Reason for Visit * Reason Onset Date Comments referral 02/27/2025 Encounter Details Date Type Department Care Team ([facility] st Contact Info) Description 02/27/2025 Telephone Adult Medicine [facility] [address] [place], [place] [phone] Sandy Dale MD [address] [place] [address] Social History Tobacco Use Types Packs/Day Years Used Date Smoking Tobacco: Never Smokeless Tobacco: Never Alcohol Use Standard Drinks/Week Comments Yes 0 (1 standard drink = 0.6 oz pur e alcohol) Housing Instability Answer Date Recorde d Are you worried that in the next 2 months you may not have stable housing? No 02/14/2025 Food Access & Nutrition Answer Date Rec orded Do you have access to a vari ety of food including fruits and vegetables? Yes 02/14/2025 Access to Healthcare Answer Date Record ed Within the last 3 months, ho w many times did you visit the emergency department for your medical care? 0 02/14/2025 Health Literacy Answer Date Recorded How often do you need to hav e someone help you when you read instructions, pamphlets, or other written material from your doctor or pharmacy? Never 02/14/2025 Caregiver: How often do you need to have someone help you when you read instructions, pamphlets, or other written material from your doctor or pharmacy? Not on file 02/14/2025 Financial Risk Answer Date Recorded How hard is it for you to pa y for the very basics like food, housing, medical care, and air conditioning / heating? Not very hard 02/14/2025 Transportation Answer Date Recorded Has the lack of transportati on kept you from meetings, work, or from getting things needed for daily living? No Has the lack of transportati on kept you from medical appointments or from getting medications? No 02/14/2025 Social Isolation Answer Date Recorded How often do you feel lonely or isolated from th ose around you? Never 02/14/2025 Food Risk Answer Date Recorded Within the past 12 months we worried whether our food would run out before we got money to buy more. Never true 02/14/2025 Within the past 12 months th e food we bought just didn't last and we didn't have money to get more. Never true 02/14/2025 Dependent Care Answer Date Recorded Do you need help finding or paying for care for your loved ones. For example, child and family services specialist or elderly care for an older adult? No 02/14/2025 Education Answer Date Recorded Do you think completing more education or training, like finishing a GED, going to college, or learning a trade, would be helpful for you? N/A 02/14/2025 Employment and Income Answer Date Recor ded During the last four weeks, have you been actively looking for work? No 02/14/2025 Living Situation Answer Date Recorded What is your living situation? Unrecognized valu e 02/14/2025 Comments Unknown Sex and Gender Information Value Date Recorded Sex Assigned at Not on file Legal Sex Female 5:59 AM EST Gender Identity Not on file Sexual Orientation Not on file documented as of this encounter Progress Notes * Mary Lou Smart - 03/04/2025 11:26 AM EST Patient is calling wanting to know if his referral was submitted, patient stated patient is waiting to be called for her allergy vaccine. * Tati Rodriguez - 02/27/2025 9:32 AM EDT Referral Request: What insurance does the patient have today? [facility] Referrals cannot be processed if the insurance is not accurate. If the insurance listed above in red is NO BILLING INFORMATION FOUND FOR THIS ENCOUTNER The patients correct insurance must be obtained and registered in [facility] or their referral can not be processed. Who is calling to request this referral? [facility] If the caller is not the patient, what is their name? not applicable Ask the patient WHO referred them to this specialty: Patient saw .PCP at [facility] for the problem and was told if symptoms did not resolve or worsen they would refer them to this specialty FIRST and LAST NAME of SPECIALIST PATIENT is seeing: JUDITH SULLIVAN What specialty is this? ALLERGY DIAGNOSIS Patient is being seen for (Not a body part or a procedure): ALLERGY SHOTS Have you seen this SPECIALIST for this PROBLEM/DX before? If YES, when? Yes. 12/17/2024 99 VISITS Have you checked REVIEW or the APPT DESK to see if this referral has already been done or has visits left? yes Is this visit: Follow Up Address of Specialist: [address] [place] [address] Phone # of Specialist: [phone] Fax #: (if applicable): [phone] Does patient have an appointment scheduled?: yes Date of appointment- (including a retro-request): 12/17/2024 Is this appointment related to: Not MVA, worker compensation, or surgery related documented in this encounter Plan of Treatment Upcoming Encounters Date Type Department Care Team (Late st Contact Info) Description 04/11/2025 10:20 AM EST Office Visit [facility] - [facility] [address] [facility] [address] [place] [id number] Racquel Sampson MD [address] [place] [address] [place] [address] 08/15/2025 1:15 PM EDT Office Visit Adult Medicine [address] [phone] Sandy Dale MD [address] [place], [place] Scheduled Referrals Name Type Priority Associated Diagnoses Order Schedule Ambulatory referral to Allergy Outpatient Referral Routine Allergy, initial encounter 1 Occurrences starting 02/27/2025 until 02/27/2026 documented as of this encounter Visit Diagnoses Diagnosis Allergy, initial encounter- Primary documented in this encounter Additional Health Concerns Assessment Noted Time PHQ-9 Depression Total Score: 0 02/15/20 25 12:54 PM EDT A fall risk assessment has been complete d for the patient 02/14/2025 12:53 PM EDT documented as of this encounter Care Teams Numerical Control Machine Machinist Relationship Specialty Start Date End Date Sandy Dale MD [address] [place] [address] PCP - General Internal Medicine 03/03/21 documented as of this encounter
--- OUTSIDE RECORDS SUMMARY | 2025-03-06 17:08 | XMS_ITS | Clinical Summary ---
Author Organization Patient [facility] [place] Address [address] [place] [address] Care Team Providers Care Neonatal Doctor Name Role Phone Sandy Dale MD Primary Care Provider [phone] Allergies Active Allergy Reactions Criticality Noted Date Comments Nitrofurantoin 09/07/2018 Rash - Macrobid Nitrofurantoin Monohyd/M-Cryst 09/07 rash Pollen Extracts 09/07/2018 SEASONAL ALLERGIES Sulfa (Sulfonamide Antibiotics) 12/2018 rash rash rash Medications sertraline (ZOLOFT) 25 mg tablet Take 1 tablet (25 mg total) by mouth at bedtime. 90 tablet 1 12/20/19 25 Active gabapentin (NEURONTIN) 600 mg tablet Take 1 tablet (600 mg total) by mouth 2 (two) times a day. 180 tablet 1 12/20/19 25 Active losartan (COZAAR) 25 mg tablet TAKE ONE TABLET BY MOUTH DAILY AT BEDTIME 90 tablet 02/08/20 25 Active metoprolol succinate (TOPROL-XL) 25 mg 24 hr tablet TAKE ONE TABLET BY MOUTH DAILY AT BEDTIME 90 tablet 02/08/20 25 Active pravastatin (PRAVACHOL) 10 mg tablet TAKE ONE TABLET BY MOUTH DAILY AT BEDTIME 90 tablet 02/08/20 25 Active omeprazole (PriLOSEC) [address] capsule TAKE ONE CAPSULE BY MOUTH EVERY DAY BEFORE BREAKFAST 90 capsule 10/09/20 25 Active apixaban (Eliquis) 5 mg tablet Take 1 tablet (5 mg total) by mouth 2 (two) times a day. 180 tablet 1 02/15/20 25 Active apixaban (Eliquis) 5 mg tablet Take 1 tablet (5 mg total) by mouth 2 (two) times a day. 180 tablet 1 08/22/19 25 025 Discontinued(Re order) losartan (COZAAR) 25 mg tablet Take 1 tablet (25 mg total) by mouth at bedtime. 90 tablet 11/13/19 25 025 Discontinued metoprolol succinate (TOPROL-XL) 25 mg 24 hr tablet Take 1 tablet (25 mg total) by mouth at bedtime. 90 tablet 11/13/19 25 025 Discontinued pravastatin (PRAVACHOL) 10 mg tablet Take 1 tablet (10 mg total) by mouth at bedtime. 90 tablet 11/13/19 25 025 Discontinued omeprazole (PriLOSEC) [address] capsule Take 1 capsule (20 mg total) by mouth 1 (one) time each day before breakfast. 90 capsule 11/13/19 025 Discontinued Active Problems Problem Noted Date Diagnosed Date Mitral and aortic valve regurgitation 11/23/2024 Atrial fibrillation (CMS/HCC V24, CMS/HCC V28) 0 08/26/2024 Assessment & Plan (02/14/2025 1:26 PM EDT): Orders: CBC and differential; Future Hyperlipidemia 08/27/2020 Assessment & Plan (02/14/2025 1:26 PM EDT): Lumbar spinal stenosis 10/19/2019 Overview (02/17/2024): S/p lumbar laminectomy-Dr Lux Lyme disease 04/19/2019 Overview (02/17/2024): Completed Doxyxycline- 12/18- seen by ID Adhesive capsulitis of left shoulder 10/10/2018 Internal impingement of left shoulder 10/10/2018 Migraines 09/13/2018 Deafness in left ear 09/07/2018 Overview (02/17/2024): Viral cause Essential hypertension 09/07/2018 Assessment & Plan (02/14/2025 1:26 PM EDT): Neuropathy 09/07/2018 Overview (02/17/2024): In feet and including numbness and pain- dr vásquez Osteopenia 09/07/2018 Vitamin D deficiency 09/07/2018 Assessment & Plan (02/14/2025 1:26 PM EDT): Encounters Date Type Department Care Team Description 03/05/2025 Telephone Adult Medicine [address] [phone] Martha Tripp [place] 02/27/2025 Telephone Adult Medicine [address] [phone] Sandy Dale MD 02/15/2025 Results Follow-Up [address] [phone] Sandy Dale MD 02/14/2025 1:15 PM EDT Office Visit [address] [phone] Sandy Dale MD Encounter for annual wellness visit (AWV) in Medicare patient (Primary Dx); Mixed hyperlipidemia; Essential hypertension; Vitamin D deficiency; Longstanding persistent atrial fibrillation (CMS/HCC V24, CMS/HCC V28) 12/19/2024 9:20 AM EDT - 12/19/2024 11:59 PM EDT Hospital Encounter [address] [phone] Acute right ankle pain Discharge Disposition: Home or Self Care 12/19/2024 9:00 AM EDT Office Visit [address] [phone] Sandy Dale MD Acute right ankle pain (Primary Dx); Essential hypertension; New onset atrial fibrillation ([facility] V24, [facility] V28); Neuropathy 12/17/2024 Telephone Adult Medicine [address] [phone] Sandy Dale MD from Last 3 Months Immunizations Immunization Administration Dates Next Due COVID-19 (Pfizer/Comirnaty) 12yo and older 01/26/2023 Influenza Quadravalent, 0.5m l (Fluad) 65yo and older 03/09/2023,01/14/2020 Influenza trivalent, 0.5mL ( Fluad) 65yo and older 02/14/2025,02/16/2024,03/07/2019,03/09,03/10/2017,02/07/2014 Influenza trivalent, 0.5mL ( Fluzone High-dose) 65yo [...] regurgitation 11/23/2024 New onset atrial fibrillatio n ([facility] V24, [facility] V28) 08/26/2024 Family History Medical History Relation [...] care for your loved ones. For example, exceptional children's teacher or elderly care for an older adult? [...] Sign Reading Time Taken Comments Blood Pressure 118/60 02/14/2025 12:50 PM EDT Pulse 67 02/14/2025 12:50 PM EDT Temperature 36.4 C (97.5 F) 02/14/2025 12:50 PM EDT Respiratory Rate 14 02/14/2025 12:50 PM EDT Oxygen Saturation 97% 02/14/2025 12:50 PM EDT Inhaled Oxygen Concentration - - Weight 77.3 kg (170 lb 8 oz) 02/14/2025 12:50 PM EDT Height 157.5 cm (5' 2 ) 02/14/2025 12:50 PM EDT Body Mass Index 31.18 02/14/2025 12:50 PM EDT Plan of Treatment Upcoming Encounters Date Type Department Care Team (Late st Contact Info) Description 04/11/2025 10:20 AM EST Office Visit [facility] - [facility] [address] [facility] [address] [place] [phone] Racquel Sampson MD [address] [place] [address] [place] [address] 08/15/2025 1:15 PM EDT Office Visit Adult Medicine [address] [phone] Sandy Dale MD [address] [place] [address] Health Maintenance Due Date Last Done Comments Zoster Vaccines (1 of 2) 1991 RSV Immunization Adult Patients (1 - 1-dose 75+ series) 02/12/2016 COVID-19 Vaccine ( - season) 2024 01/26/2023, 03/16/2021, 07/02/2020, Additional history exists Hypertension/CHF/CAD Annual BMP Blood Test 08/28/2025 08/28/2024, 09/13/2023, 09/13/2023 Falls Risk Assessment 02/14/2026 02/14/2025 , 02/14/2025, 02/16/2024 Medicare Annual Wellness Visit 02/14/2026 02/14/2025, 02/16/2024 Social Influencers of Health Screening 02/14/2026 02/14/2025 Cholesterol Screening (Lipid Panel) 08/28/2029 08/28/2024, 09/13/2023, 09/13/2023 DTaP,Tdap,and Td Vaccines (2 - Td or Tdap) 04/23/2030 04/23/2020 Osteoporosis Screening (Bone Density Screening) 06/29/2032 06/29/2022, 05/23/2020, 07/20/2017 Pneumococcal Vaccine: 50+ Years Completed 10/20/2018, 07/10/2014 Depression Screening Completed 02/14/2025 Influenza Vaccine Completed 02/14/2025, , 03/09/2023, Additional history exists HIB Vaccines Aged Out No longer eligi [...] Procedure Name Priority Date/Time Associated Diagnosis Comments CBC WITH AUTO DIFFERENTIAL Routine 02/14/2025 1:23 PM EDT Longstanding persistent atrial fibrillation (CMS/HCC V24, CMS/HCC V28) CBC AND DIFFERENTIAL Routine 02/14/2025 1:23 PM EDT Longstanding persistent atrial fibrillation (CMS/HCC V24, CMS/HCC V28) XR ANKLE 3+ VIEWS RIGHT Routine 12/19/2024 9:29 AM EDT Acute right ankle pain COMPREHENSIVE METABOLIC PANEL Routine 08/28/2024 8:43 AM EDT Essential hypertension LIPID PANEL WITH REFLEX TO DIRECT LDL Routine 08/28/2024 8:43 AM EDT Mixed hyperlipidemia DXA BONE DENSITY STUDY 1+ SITS AXIAL SKEL Routine 06/29/2022 1:17 PM EST Other specified disorders of bone density and structure, unspecified site from Last 3 Months or Most Recently Relevant to Health Maintenance Results * (ABNORMAL) CBC auto differential (02/14/2025 1:23 PM EDT) WBC 9.2 4.8 - 10.8 K/mcL LAB HEMETOLOGY METHOD 02/14/2025 5:16 PM EDT [facility] RBC 4.60 3.80 - 4.80 M/mcL LAB HEMETOLOGY METHOD 02/14/2025 5:16 PM EDT [facility] Hemoglobin 12.9 11.5 - 16.0 g/dL LAB HEMETOLOGY METHOD 02/14/2025 5:16 PM EDT [facility] Hematocrit 41.4 35.0 - 47.0 % LAB HEMETOLOGY METHOD 02/14/2025 5:16 PM EDT [facility] MCV 90.8 79.0 - 98.0 FL LAB HEMETOLOGY METHOD 02/14/2025 5:16 PM EDT [facility] MCH 28.3 27.0 - 32.0 pcg LAB HEMETOLOGY METHOD 02/14/2025 5:16 PM EDT [facility] MCHC 31.2(L) 32.0 - 37.0 g/dL LAB HEMETOLOGY METHOD 02/14/2025 5:16 PM EDT [facility] RDW 12.7 11.0 - 15.0 % LAB HEMETOLOGY METHOD 02/14/2025 5:16 PM EDT [facility] Platelets 280 130 - 400 K/mcL [facility] MPV 11.0 7.0 - 11.0 FL LAB HEMETOLOGY METHOD 02/14/2025 5:16 PM EDT [facility] NRBC 0.0 <1.0 % LAB HEMETOLOGY METHOD 02/14/2025 5:16 PM EDT [facility] NRBC Absolute 0.00 <0.10 K/mcL LAB HEMETOLOGY METHOD [facility]/14[facility]2025 [facility] Neutrophils Relative 65.5 % LAB HEMETOLOGY METHOD 02/14/2025 5:16 PM EDT [facility] Lymphocytes Relative 27.1 % LAB HEMETOLOGY METHOD 02/14/2025 5:16 PM EDT [facility] Monocytes Relative 5.1 % LAB HEMETOLOGY METHOD 02/14/2025 5:16 PM EDT [facility] Eosinophils Relative 1.1 % LAB HEMETOLOGY METHOD 02/14/2025 5:16 PM EDT [facility] Basophils Relative 0.9 % LAB HEMETOLOGY METHOD 02/14/2025 5:16 PM EDT [facility] Immature Granulocytes Relative 0.3 % LAB HEMETOLOGY METHOD 02/14/2025 5:16 PM EDT [facility] Neutrophils Absolute 6.06 1.50 - 7.00 K/[facility] LAB HEMETOLOGY METHOD 02/14/2025 5:16 PM EDT [facility] Lymphocytes Absolute 2.50 1.00 - 5.00 K/[facility] LAB HEMETOLOGY METHOD 02/14/2025 5:16 PM EDT [facility] Monocytes Absolute 0.47 0.20 - 1.00 K/[facility] LAB HEMETOLOGY METHOD 02/14/2025 5:16 PM EDT [facility] Eosinophils Absolute 0.10 0.00 - 0.50 K/[facility] LAB HEMETOLOGY METHOD 02/14/2025 5:16 PM EDT [facility] Basophils Absolute 0.08 0.00 - 0.20 K/mcL LAB HEMETOLOGY METHOD 02/14/2025 5:16 PM EDT [facility] Immature Granulocytes Absolute 0.03 0.00 - 0.03 K/[facility] LAB HEMETOLOGY METHOD 02/14/2025 5:16 PM EDT [facility] Blood Venous blood specimen / Unknown Venipuncture / Unknown 02/14/2025 1:23 PM EDT 02/14/2025 1:23 PM EDT us Sandy Dale MD LAB BLOOD ORDERABLES Final Resul t [facility] [address] [place] [address], * XR Ankle 3+ Views Right (12/19/2024 [...] Signed Date: 12/19/2024 11:15 ET Workstation ID: [id number] Transcribed By: Self Edit Transcribed Date: 12/19/2024 [...] Signed Date: 12/19/2024 11:15 ET Workstation ID: [id number] Transcribed By: Self Edit Transcribed Date: 12/19/2024 11:14 ET us Sandy Dale MD IMG XR PROCEDURES Final Result * Lipid panel with reflex to direct LDL (08/28/2024 8:43 AM EDT) Cholesterol 144 0 - 200 mg/dL LAB CHEMISTRY METHOD 08/28/2024 1:44 PM EDT [facility] Triglycerides 121 0 - 150 mg/dL LAB CHEMISTRY METHOD 08/28/2024 1:44 PM EDT [facility] HDL 53 >=40 mg/dL LAB CHEMISTRY METHOD 08/28/2024 1:44 PM EDT [facility] LDL Calculated 67 0 - 100 mg/dL LAB CHEMISTRY METHOD 08/28/2024 1:44 PM EDT [facility] VLDL Cholesterol Carlos 24.2 mg/dL LAB CHEMISTRY METHOD 08/28/2024 1:44 PM EDT [facility] Non HDL Chol. (LDL+VLDL) 91 <145 mg/dL LAB CHEMISTRY METHOD [facility] Chol/HDL Ratio 2.7 0.0 - 4.4 LAB CHEMISTRY METHOD 08/28/2024 1:44 PM [facility] Blood Venous blood specimen / Unknown Venipuncture / Unknown 08/28/2024 8:43 AM EDT 08/28/2024 8:43 AM EDT us Bettina GOEL LAB BLOOD ORDERABLES Final Re sult [facility] [address] [place] [address], * Comprehensive metabolic panel (08/28/2024 8:43 AM EDT) Sodium 144 133 - 145 mmol/L LAB CHEMISTRY METHOD 08/28/2024 1:44 PM T [facility] Potassium 4.5 3.5 - 5.5 mmol/L LAB CHEMISTRY METHOD 08/28/2024 1:44 PM T [facility] Chloride 106 96 - 110 mmol/L LAB CHEMISTRY METHOD 08/28/2024 1:44 PM [facility] CO2 30 21 - 32 mmol/L LAB CHEMISTRY METHOD 08/28/2024 1:44 PM T [facility] Anion Gap 8 3 - 11 LAB CHEMISTRY METHOD 08/28/2024 1:44 PM [facility] Glucose 95 70 - 100 mg/dL LAB CHEMISTRY METHOD 08/28/2024 1:44 PM [facility] BUN 15 5 - 25 mg/dL LAB CHEMISTRY METHOD 08/28/2024 1:44 PM [facility] Creatinine 0.79 0.50 - 1.10 mg/dL LAB CHEMISTRY METHOD 08/28/2024 1:44 PM [facility] eGFR 74 >=60 mL/min/1. 73m2 LAB CHEMISTRY METHOD 08/28/2024 1:44 PM [facility] Comment:Calculation based on the Chronic Kidney Disease Epidemiology Collaboration (CKD-EPI) equation refit without adjustment for race. BUN/Creatinine Ratio 19.0 LAB CHEMISTRY METHOD 08/28/2024 1:44 PM [facility] Calcium 9.2 8.5 - 10.5 mg/dL LAB CHEMISTRY METHOD 08/28/2024 1:44 PM [facility] AST (SGOT) 15 10 - 42 unit/L LAB CHEMISTRY METHOD 08/28/2024 1:44 PM [facility] ALT (SGPT) 26 10 - 60 unit/L LAB CHEMISTRY METHOD 08/28/2024 1:44 PM [facility] Alkaline Phosphatase 93 42 - 121 unit/L LAB CHEMISTRY METHOD 08/28/2024 1:44 PM [facility] Total Protein 6.6 6.0 - 8.0 g/dL LAB CHEMISTRY METHOD 08/28/2024 1:44 PM [facility] Albumin 3.7 3.2 - 5.0 g/dL LAB CHEMISTRY METHOD 08/28/2024 1:44 PM [facility] Total Bilirubin 0.5 0.0 - 1.4 mg/dL LAB CHEMISTRY METHOD 08/28/2024 1:44 PM [facility] Blood Venous blood specimen / Unknown Venipuncture / Unknown 08/28/2024 8:43 AM EDT 08/28/2024 8:43 AM EDT us Bettina GOEL LAB BLOOD ORDERABLES Final Re sult [facility] [address] [place] [address], * DXA BONE DENSITY STUDY 1+ SITS [...] bone mineral density by WHO criteria. The [facility] Department of Internal Medicine recommends [...] alternative screening schedule based on matilde Sinclair., [facility] May 20, 2011 for patients with osteopenia [...] bone mineral density by WHO criteria. The [facility] Department of Internal Medicine recommendsusing [...] Maintenance Insurance [employer] Care Teams Neonatal Doctor Relationship Specialty Start Date End Date Sandy Dale MD [address] [place] [address] PCP - General Internal Medicine 03/03/21
--- OUTSIDE RECORDS SUMMARY | 2025-03-06 17:08 | XMS_ITS | Patient Health Record ---
[facility] Organization [facility] Address [address] [place] [address] Care Team Providers Care Dyed Yarn Operator Name Role Phone Nate Montejo MD Primary Care Provider Marshall Marquez Unavailable [phone] Allergies Allergen (clinical drug ingredient) Drug/Non Drug [...] Treatment Pending Test Test Name Order Date 60640- Debride <25 sq cm 12/30/2014 Insurance Providers Payer Name Payer Address Payer Phone Subscriber Number Group Number Insured Name Patient Relationship to Insured Coverage Start Date Coverage End Date [employer] Preferred [address] [place] [address] [id number] Jennifer Handley Self - patient is the insured Medical (General) History Medical History History ICD Code Arthritis Broken bones Cataracts Headaches Migraines Hypertension Neuropathy chronic sinusitis Measles Mumps Chicken pox Surgical History Surgery Date(Month/Year) hysterectomy hand/wrist foot surgery
--- OUTSIDE RECORDS SUMMARY | 2025-03-06 17:08 | XMS_ITS | Encounter Summary ---
Author Organization [facility] Address [address] [place] [address] Care Team Providers Care Social Media Strategist Name Role Phone Sandy Dale MD Primary Care Provider [phone] Encounter Details Date Type Department Care Team (Late st Contact Info) Description 02/15/2025 Results Follow-Up Adult Medicine [facility] [address] [place] [address] Sandy Dale MD [address] [place], [place] Social History Tobacco Use Types Packs/Day Years [...] for your loved ones. For example, child daycare worker or elderly care for an older adult? [...] on file documented as of this encounter Plan of Treatment Upcoming Encounters Date Type Department Care Team (Late st Contact Info) Description 04/11/2025 10:20 AM EST Office Visit [facility] - [address] [facility] [address] [place] [id number] Racquel Sampson MD [address] [place] [address] [address] 08/15/2025 1:15 PM EDT Office Visit Adult Medicine [facility] [address] [place], [place] [phone] Sandy Dale MD [address] [place], [place] documented as of this encounter Visit Diagnoses Not on filedocumented in this encounter Additional Health Concerns Assessment Noted Time PHQ-9 Depression Total Score: 0 02/15/20 12:54 PM EDT A fall risk assessment has been complete d for the patient 02/14/2025 12:53 PM EDT documented as of this encounter Care Teams Social Media Strategist Relationship Specialty Start Date End Date Sandy Dale MD [address] [place] [address] PCP - General Internal Medicine 03/03/21 documented as of this encounter
--- OUTSIDE RECORDS SUMMARY | 2025-03-06 17:08 | XMS_ITS | Clinical Summary ---
Author Organization [facility] Address [address] [place] [address] Care Team Providers Care Qa Tester Name Role Phone Niraj Arambula Primary Care [...] age to complete this topic Care Teams Qa Tester Relationship Specialty Start Date End Date Niraj Arambula PCP - General Internal Medicine 09/13/18
--- OUTSIDE RECORDS SUMMARY | 2025-03-06 17:08 | XMS_ITS | Encounter Summary ---
Author Organization [facility] Address [address] [place] [address] Care Team Providers Care Skirt Panel Assembler Name Role Phone Sandy Dale MD Primary Care Provider [phone] Reason for Referral * Consultation (Routine) - Closed Specialty Diagnoses / Procedures Referred By Brianna dumas Referred To Contact Diagnoses Eye exam, routine Sandy Dale MD [address] [place] [address] Phone: tel: fax: Ishmael Teresa, OD [address] [address] Phone: tel: fax: Referral ID Status Reason Start Date Expiration Date V isits Requested Visits Authorized [id number] Closed Specialty Services Required 03/05/2025 03/05/2026 6 6 Reason for Visit * Reason Onset Date Comments Referral 03/05/2025 Encounter Details Date Type Department Care Team (Late st Contact Info) Description 03/05/2025 Telephone Adult Medicine [facility] [place] [address] [place], [place] [phone] Martha Tripp [place] Social History Tobacco Use Types Packs/Day [...] for your loved ones. 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 [...] as of this encounter Progress Notes * Martha Tripp MA - 03/05/2025 1:47 PM EST Referral Request: What insurance does the patient have today? Payor: [employer] / Plan: [facility] MED[facility]ARE ADVANTAGE / Product Type: *No Product type* / Referrals cannot be processed if the insurance is not accurate. If the insurance listed above in red is NO BILLING INFORMATION FOUND FOR THIS ENCOUTNER The patients correct insurance must be obtained and registered in [facility] or their referral can not be processed. Who is calling to request this referral? PATIENT If the caller is not the patient, what is their name? not applicable Ask the patient WHO referred them to this specialty: Patient self referred FIRST and LAST NAME of SPECIALIST PATIENT is seeing: DR.MATTHEW TERESA What specialty is this? OPTOMETRY DIAGNOSIS Patient is being seen for (Not a body part or a procedure): YEARLY EXAM Have you seen this SPECIALIST for this PROBLEM/DX before? If YES, when? Yes. LAST YEAR Have you checked REVIEW or the APPT DESK to see if this referral has already been done or has visits left? yes Is this visit: Follow Up Address of Specialist: [address] [place] [address] Phone # of Specialist: [phone] Fax #: (if applicable): [phone] Does patient have an appointment scheduled?: yes Date of appointment- (including a retro-request): 03/12/25 WITH 2 VISITS Is this appointment related to: Not MVA, worker compensation, or surgery related documented in this encounter Plan of Treatment Upcoming Encounters Date Type Department Care Team (Late st Contact Info) Description 04/11/2025 10:20 AM EST Office Visit [facility] - [address] [facility] [address] [place] [phone] Racquel Sampson MD [address] [place] [address] [address] [place] [address] 08/15/2025 1:15 PM EDT Office Visit Adult Medicine [facility] [address] [place] [address] Sandy Dale MD [address] [place] [address] Scheduled Referrals Name Type Priority Associated Diagnoses Order Schedule Ambulatory referral to Optometry Outpatient Referral Routine Eye exam, routine 1 Occurrences starting 03/05/2025 until 03/05/2026 documented as of this encounter Visit Diagnoses Diagnosis Eye exam, routine- Primary documented in this encounter Additional Health Concerns Assessment Noted Time PHQ-9 Depression Total Score: 0 02/15/20 25 12:54 PM EDT A fall risk assessment has been complete d for the patient 02/14/2025 12:53 PM EDT documented as of this encounter Care Teams Skirt Panel Assembler Relationship Specialty Start Date End Date Sandy Dale MD [address] [place] [address] PCP - General Internal Medicine 03/03/21 documented as of this encounter
== END 2025-03-06 13:57 | disposition home or self-care (01) ==
LOC: HO.HMGAL 13:57
PROVIDERS: PCP Internal Medicine; Visit Provider Registered Nurse Emergency
DX: J30.89 Other allergic rhinitis (principal)
CPT/HCPCS: 95117; 95165

== ENCOUNTER 2025-04-01 13:53 | Outpatient (AMB) | payer MEDICARE, SELFPAY ==
--- OUTSIDE RECORDS SUMMARY | 2025-04-01 17:20 | XMS_ITS | Clinical Summary ---
Author Organization [facility] Address [address] [place] [address] Care Team Providers Care Explosion Welder Name Role Phone Niraj Arambula Primary Care [...] age to complete this topic Care Teams Explosion Welder Relationship Specialty Start Date End Date Niraj Arambula PCP - General Internal Medicine 09/13/18
== END 2025-04-01 13:54 | disposition home or self-care (01) ==
LOC: HO.HMGAL 13:53
PROVIDERS: PCP Internal Medicine; Visit Provider Registered Nurse Emergency
DX: J30.89 Other allergic rhinitis (principal)
CPT/HCPCS: 95117; 95165